=== PATIENT | male | born 1960 | race Hispanic/Latino ===

== ENCOUNTER → 2020-02-05 | Outpatient (CLI) | payer OTHER ==
[~2020-02-05] MED LIST: GADODIAMIDE 10 MMOL/20 ML VIAL IV ONE
== END | disposition home or self-care (01) ==
LOC: RAH 12:58
PROVIDERS: ATTEND Emergency Medicine Emergency Medical Services
DX: H91.91 Unspecified hearing loss, right ear (principal)
CPT/HCPCS: 70553; A9579